=== PATIENT | female | born 1975 | race Caucasian/White ===

== ENCOUNTER → 2018-06-18 | Outpatient (CLI) | payer OTHER ==
--- NOTE | 2018-06-18 16:38 | US ---
EXAMINATION TYPE: US venous doppler duplex LE RT DATE OF EXAM: 06/18/2018 4:17 PM COMPARISON: NONE CLINICAL HISTORY: Rt lower Ext pain and Swelling M79.661 R22.41. SIDE PERFORMED: Right TECHNIQUE: The lower extremity deep venous system is examined utilizing real time linear array sonog norris with graded compression, doppler sonography and color-flow sonography. VESSELS IMAGED: External Iliac Vein (EIV) Common Femoral Vein Deep Femoral Vein Greater Saphenous Vein * Femoral Vein Popliteal Vein Small Saphenous Vein * Proximal Calf Veins (* superficial vessels) Right Leg: Negative for DVT In the right popliteal fossa, there is a anechoic area visualized measuring 4.4 x 2.1 x 2.3 cm, possi ble Hopkins's cyst IMPRESSION: Popliteal cyst. No evidence of deep venous thrombosis in the right leg.
== END ==
LOC: RADUSWWP 15:44
PROVIDERS: ATTEND Physician Assistant
DX: M71.20 Synovial cyst of popliteal space [Baker], unspecified knee (principal)